=== PATIENT | female | born 1945 | race Caucasian/White ===

== ENCOUNTER → 2018-06-11 | Outpatient (CLI) | payer MEDICARE | END | disposition home or self-care (01) | LOC: CFH 09:33 | PROVIDERS: ATTEND Internal Medicine | DX: I08.0 Rheumatic disorders of both mitral and aortic valves (principal) | CPT/HCPCS: 93306 ==

== ENCOUNTER 2019-02-24 14:30 | Outpatient (CLI) | payer MEDICARE ==
[2019-02-24] MEDS ORDERED: LOSA100T14 PO (14:58)
[2019-02-24 15:54] LABS: BASOPHILS # (AUTO) 0.03 x10^3/uL (0-0.1); BASOPHILS % (AUTO) 0 % (0-1); EOSINOPHILS # (AUTO) 0.13 x10^3/uL (0-0.4); EOSINOPHILS % (AUTO) 2 % (1-7); LYMPHOCYTES # (AUTO) 1.93 x10^3/uL (1-3.4); LYMPHOCYTES % (AUTO) 24 % (22-44); MD NO; MEAN CORPUSCULAR HEMOGLOBIN 32.4 pg (27.0-34.8); MEAN CORPUSCULAR VOLUME 98.2 fL (80-100); MEAN PLATELET VOLUME 7.9 fL (7.4-10.4); MONOCYTES # (AUTO) 0.53 x10^3/uL (0.2-0.8); MONOCYTES % (AUTO) 7 % (2-9); NEUTROPHILS # (AUTO) 5.31 x10^3/uL (1.8-6.8); NEUTROPHILS % (AUTO) 67 % (42-75); PLATELET COUNT 266 x10^3/uL (130-400); RED CELL DISTRIBUTION WIDTH 14.3 % (9.6-15.2)
[2019-02-24 15:58] LABS: CULTURE INDICATED? YES; MICROSCOPIC INDICATED
[2019-02-24] MEDS ORDERED: TRIA1CAP3 PO (16:00)
[2019-02-24] MEDS ORDERED: AMLO10TA8 PO (16:00)
[2019-02-24] MEDS ORDERED: LEVO25TA4 PO (16:00)
[2019-02-24] MEDS ORDERED: DULO30CA2 PO (16:00)
[2019-02-24] MEDS ORDERED: areds PO (16:02)
[2019-02-24] MEDS ORDERED: Vitamin B-12 PO (16:02)
[2019-02-24] MEDS ORDERED: vitamin D PO (16:02)
[2019-02-24] MEDS ORDERED: HYDR200T72 PO (16:02)
[2019-02-24] MEDS ORDERED: ASPI-496 PO (16:02)
[2019-02-24 16:04] LABS: ALBUMIN 4.1 g/dL (3.4-5.0); ANION GAP 6 mmol/L (5-15); CHLORIDE 103 mmol/L (98-107)
[2019-02-24 16:08] LABS: ALANINE AMINOTRANSFERASE 21 U/L (12-78); ALKALINE PHOSPHATASE 94 U/L (45-117); BILIRUBIN,TOTAL 0.6 mg/dL (0.2-1.0); CREATININE 0.98 mg/dL (0.55-1.02); TOTAL PROTEIN 7.5 g/dL (6.4-8.2)
== END 2019-02-24 23:59 | disposition home or self-care (01) ==
LOC: STAR 14:30
PROVIDERS: ATTEND Orthopaedic Surgery
DX: Z01.818 Encounter for other preprocedural examination (principal); M17.12 Unilateral primary osteoarthritis, left knee
CPT/HCPCS: 36415; 80053; 81001; 85025; 87077; 87081; 87086; 87186; 87806; 93005; G0475

== ENCOUNTER → 2019-02-24 | Outpatient (CLI) | payer MEDICARE ==
[~2019-02-24] MED LIST: AMLO10TA8 PO; ASPI-496 PO; DULO30CA2 PO; HYDR200T72 PO; LEVO25TA4 PO; LOSA100T14 PO; REGADENOSON 0.4 MG/5 ML SYRINGE ONE; TRIA1CAP3 PO; Vitamin B-12 PO; areds PO; vitamin D PO
== END | disposition home or self-care (01) ==
LOC: CFH 08:04
PROVIDERS: ATTEND Internal Medicine Cardiovascular Disease
DX: Z01.810 Encounter for preprocedural cardiovascular examination (principal); I99.8 Other disorder of circulatory system
CPT/HCPCS: 78452; 93017; A9502; J2785

== ENCOUNTER 2019-02-28 05:30 | Observation (INO) | payer MEDICARE ==
[~2019-02-28] VITALS: Ht 170.2 cm; Wt 114.9 kg
[~2019-02-28 05:30] MED LIST changes: -REGADENOSON 0.4 MG/5 ML SYRINGE ONE
[2019-02-28] MEDS ORDERED: VANCOMYCIN PMX 1GM/200ML 200 ML IV STA (06:05)
[2019-02-28] MEDS: LACTATED RINGERS 1,000 ML IV SCH ×3 (06:27→14:37)
[2019-02-28] MEDS ORDERED: TRANEXAMIC ACID 100 MG/ML, 10ML ONE (06:31)
[2019-02-28] MEDS ORDERED: morphine SULFATE/PF 1 MG/ML, 10ML ONE (06:31)
[2019-02-28] MEDS ORDERED: KETOROLAC 60 MG/2 ML ONE (06:31)
[2019-02-28] MEDS ORDERED: SODIUM CHLORIDE 0.9% 50 ML ONE (06:32)
[2019-02-28] MEDS ORDERED: ROPIvacaine/PF 0.2%, 20 ML ONE (06:32)
[2019-02-28] MEDS ORDERED: BACITRACIN 50,000 UNIT ONE (06:32)
[2019-02-28] MEDS ORDERED: EPINEPHRINE 1 MG/ML, 1ML ONE (06:32)
[2019-02-28] MEDS ORDERED: FENTANYL PF 250 MCG/5ML ONE ×2 (07:08→08:00)
[2019-02-28] MEDS ORDERED: LIDOCAINE 2% 100MG/5ML SYRINGE ONE (07:27)
[2019-02-28] MEDS ORDERED: ACETAMINOPHEN 325 MG TABLET PO PRN ×2 (07:30→08:00)
[2019-02-28] MEDS ORDERED: LORazepam 2 MG/ML, 1ML IVPush PRN (07:30)
[2019-02-28] MEDS ORDERED: DIPHENHYDRAMINE 50 MG CAPSULE PO PRN (07:30)
[2019-02-28] MEDS: TRANEXAMIC ACID 1,000 MG in SODIUM CHLORIDE 0.9% 100 ML IV ONE ×2 (07:30→14:36)
[2019-02-28] MEDS ORDERED: ONDANSETRON 2MG/ML, 2ML IVPush PRN (07:30)
[2019-02-28] MEDS ORDERED: morphine SULFATE 10 MG/ML, 1ML IVPush PRN (07:30)
[2019-02-28] MEDS ORDERED: ZOLPIDEM 5MG TABLET PO PRN (07:30)
[2019-02-28] MEDS ORDERED: CEFAZOLIN 1,000 MG ONE (08:00)
[2019-02-28] MEDS ORDERED: PROPOFOL 10 MG/ML, 20ML ONE ×2 (08:00→08:17)
[2019-02-28] MEDS ORDERED: OXYcodone 5 MG/5 ML ORAL.SOL UDC PO PRN (08:00)
[2019-02-28] MEDS ORDERED: ONDANSETRON 2MG/ML, 2ML IV PRN (08:00)
[2019-02-28] MEDS ORDERED: DEXAMETHASONE 4 MG/ML, 1ML ONE (08:00)
[2019-02-28] MEDS ORDERED: LABETALOL 5MG/ML, 20ML IV PRN (08:00)
[2019-02-28] MEDS ORDERED: HYDROmorphone 2 MG/ML, 1ML IVPush PRN (08:00)
[2019-02-28] MEDS ORDERED: FENTANYL PF 100 MCG/2ML IV PRN (08:00)
[2019-02-28] MEDS ORDERED: ONDANSETRON ODT 8 MG PO PRN (08:00)
[2019-02-28] MEDS ORDERED: hydrALAzine 20 MG/ML, 1ML IV PRN (08:00)
[2019-02-28] MEDS ORDERED: ONDANSETRON 2MG/ML, 2ML ONE (08:00)
[2019-02-28] MEDS ORDERED: DIAZEPAM 5 MG/ML, 2ML IVPush PRN (08:00)
[2019-02-28] MEDS ORDERED: PROMETHAZINE 25 MG/ML, 1ML IV PRN (08:00)
[2019-02-28] MEDS ORDERED: MIDAZOLAM 1 MG/ML, 2ML ONE ×2 (08:02→10:14)
[2019-02-28] MEDS ORDERED: hydrALAzine 20 MG/ML, 1ML ONE (08:17)
[2019-02-28] MEDS ORDERED: OXYcodone 5 MG/5 ML ORAL.SOL UDC ONE (09:32)
[2019-02-28] MEDS ORDERED: ACETAMINOPHEN 650 MG/20.3 ML UDC ONE (09:32)
[2019-02-28] MEDS ORDERED: HYDROmorphone 1 MG/ML, 1ML INJ ONE (09:32)
[2019-02-28] MEDS ORDERED: MEPERIDINE/PF 25MG/ML,1ML ONE (10:14)
[2019-02-28] MEDS ORDERED: MEPERIDINE/PF 25MG/0.5ML IVPush PRN (10:30)
[2019-02-28] MEDS ORDERED: MIDAZOLAM 1 MG/ML, 2ML IVPush PRN (10:30)
[2019-02-28] MEDS: CEFAZOLIN PMX 2GM/50ML 50 ML IVPB SCH (14:35)
[2019-02-28] MEDS: OXYcodone/APAP 7.5/325MG TABLET PO PRN ×2 (14:35→19:39)
[2019-02-28] MEDS: D5%-0.45% NACL 1,000 ML IV SCH ×2 (14:36→21:01)
[2019-02-28] MEDS ORDERED: TRANEXAMIC ACID 1,000 MG in SODIUM CHLORIDE 0.9% 100 ML IV ONE (15:00)
[2019-02-28 19:23] VITALS: BP 108/64
[2019-03-01] VITALS: BP 129/75
[2019-03-01] MEDS: CEFAZOLIN PMX 2GM/50ML 50 ML IVPB SCH ×2 (00:08→08:43)
[2019-03-01] MEDS: OXYcodone/APAP 7.5/325MG TABLET PO PRN ×4 (00:09→13:41)
[2019-03-01] MEDS: D5%-0.45% NACL 1,000 ML IV SCH ×3 (01:13→10:00)
[2019-03-01 04:38] VITALS: BP 153/80
[2019-03-01] MEDS ORDERED: VANCOMYCIN PMX 1GM/200ML 200 ML IVPB ONE (06:00)
[2019-03-01] MEDS ORDERED: LEVOTHYROXINE 50 MCG TABLET PO SCH (06:00)
[2019-03-01 07:23] VITALS: BP 118/70
[2019-03-01] MEDS ORDERED: ASPIRIN 325 MG TABLET EC PO SCH (08:00)
[2019-03-01] MEDS ORDERED: HYDROXYCHLOROQUINE 200 MG TABLET PO SCH (09:00)
[2019-03-01] MEDS ORDERED: CYANOCOBALOMIN 100MCG TABLET PO SCH (09:00)
[2019-03-01] MEDS ORDERED: CHOLECALCIFEROL 5,000u TAB PO SCH (09:00)
[2019-03-01] MEDS ORDERED: MULTIVITAMIN 1 TABLET PO SCH (09:00)
[2019-03-01] MEDS ORDERED: DOCUSATE 100 MG CAPSULE PO SCH (09:00)
[2019-03-01] MEDS ORDERED: DULOXETINE 30 MG CAPSULE.DR PO SCH (09:00)
[2019-03-01] MEDS ORDERED: AMLODIPINE 2.5 MG TABLET PO SCH (09:00)
[2019-03-01] MEDS ORDERED: LOSARTAN 25MG TABLET PO SCH (09:00)
[2019-03-01] MEDS ORDERED: TRIAMTERENE-HCTZ 37.5/25 MG TABLET PO SCH (09:00)
[2019-03-01 13:30] VITALS: BP 106/67
== END 2019-03-01 14:44 | disposition home or self-care (01) ==
LOC: OUT 05:30 → 4NE 11:02 → OUT 11:39 → DCLOUNGE 03-01 14:39
PROVIDERS: ADMIT Orthopaedic Surgery; ATTEND Orthopaedic Surgery
DX: M17.12 Unilateral primary osteoarthritis, left knee (principal); I10 Essential (primary) hypertension; M06.9 Rheumatoid arthritis, unspecified; K21.9 Gastro-esophageal reflux disease without esophagitis; G47.30 Sleep apnea, unspecified; F10.10 Alcohol abuse, uncomplicated; E07.9 Disorder of thyroid, unspecified; R60.9 Edema, unspecified; Z88.0 Allergy status to penicillin; Z79.899 Other long term (current) drug therapy
CPT/HCPCS: 27447; 73560; 96365; 96366; 96367; 97116; 97150; 97161; 97165; C1713; C1776; G0378; J0171; J0360; J0690; J1100; J1170; J1885; J2175; J2250; J2274; J2405; J2704; J2795; J3010; J3370; J7120